=== PATIENT | male | born 1950 | race Caucasian/White ===

== ENCOUNTER → 2016-12-13 | Outpatient (CLI) | payer MEDICARE, BC ==
[~2016-12-13] MED LIST: ASPIRIN 32325 MG/TAB PO; CEPHALEXIN500 M1 PO; CIPRO 500MG TA500 MG PO; CIPRO PO; CLARITIN10 MG PO; LORTAB 7.5/5001 TAB PO; METRONIDAZOLE500 MG PO; NO HOME MEDICATIONS; PRINIVIL10 MG PO; TOPROL XL 50MG50 MG PO
== END ==
LOC: COL.RAD 07:08
DX: M25.511 Pain in right shoulder (principal); M77.8 Other enthesopathies, not elsewhere classified

== ENCOUNTER → 2016-12-23 | Outpatient (CLI) | payer MEDICARE, BC | LOC: COL.RAD 12:49 | DX: N50.812 Left testicular pain (principal) ==

== ENCOUNTER → 2018-02-13 | Outpatient (CLI) | payer MEDICARE, BC | LOC: COL.VAS 10:38 | DX: M79.604 Pain in right leg (principal); Z86.718 Personal history of other venous thrombosis and embolism ==

== ENCOUNTER → 2019-01-05 | Outpatient (CLI) | payer MEDICARE, BC | LOC: COL.VAS 12:53 | DX: M79.671 Pain in right foot (principal); R20.2 Paresthesia of skin ==